=== PATIENT | male | born 1980 | race Caucasian/White ===

== ENCOUNTER 2022-04-21 21:05 | Emergency (ER) | payer SELFPAY ==
[2022-04-21 21:17] VITALS: BP 147/105; PULSE 85; O2SAT 100
[2022-04-21 22:07] VITALS: BP 147/89; PULSE 77; RESP 18; O2SAT 99
--- NOTE | 2022-04-21 22:08 | PC.NURSE ---
pt states he doesn't want to wait all night. right eye swelling is moderate. states swelling is slightly better. no airway involvement. ls cta. unlabored resp.
== END 2022-04-21 22:21 | disposition left against medical advice (07) ==
PROVIDERS: Emergency Provider Emergency Medicine
DX: H57.11 Ocular pain, right eye (principal)
CPT/HCPCS: 99281

== ENCOUNTER 2022-04-22 10:45 | Emergency (ER) | payer SELFPAY ==
[2022-04-22 11:37] VITALS: BP 137/86; PULSE 71; RESP 18; TEMP 36.6; O2SAT 98; BMI 28.7
== END 2022-04-22 16:16 | disposition left against medical advice (07) ==
PROVIDERS: Emergency Provider Emergency Medicine
DX: T63.441A Toxic effect of venom of bees, accidental (unintentional), initial encounter (principal); Y92.9 Unspecified place or not applicable
CPT/HCPCS: 99281